=== PATIENT | female | born 1945 | race Caucasian/White ===

== ENCOUNTER 2024-06-03 06:42 | Emergency (ER) | payer MEDICARE ==
[2024-06-03 07:12] LABS: #Basophils 0.01 10x3/uL (0.0-0.2); #Eosinphils 0.09 10x3/uL (0.0-0.5); #Monocytes 1.02 10x3/uL (0.0-1.1); #Neutrophils 7.29 10x3/uL (1.5-8.4); %Basophils 0.1 % (0.0-2.0); %Eosinophils 0.8 % (0.0-6.0); %Lymphocytes 23.2 % (18.0-47.0); %Monocytes 9.2 % (0.0-10.0); %Neutrophils 66.2 % (40.0-75.0)
[2024-06-03 07:13] LABS: Hemoglobin 6.9 g/dL (12.0-15.5); Mean Corpuscular Hemoglobin 24.6 pg (27.0-33.0); Mean Corpuscular Volume 82.1 fL (81.6-98.3); Mean Platelet Volume 8.1 fL (7.4-10.4); Platelet Count 276 10x3/uL (150-450); RBC Distribution Width 17.2 % (11.5-14.5)
[2024-06-03 07:25] LABS: INR-International Normal Ratio 1.2; PTT 30.5 sec (22.0-33.0); Prothrombin Time 12.5 sec (9.5-12.1)
[2024-06-03 07:32] LABS: ALT (SGPT) 13 U/L (8-55); AST (SGOT) 12 U/L (5-34); Albumin 1.6 g/dL (3.4-4.8); Alkaline Phosphatase 79 U/L (40-110); Anion Gap 10 mmol/L (10-20); BUN (Urea Nitrogen) 18 mg/dL (9.8-20.1); Bilirubin, Total 0.3 mg/dL (0.2-1.2); Calc. Creatinine Clearance 0 mL/min (70-130); Calcium 7.4 mg/dL (7.8-10.44); Carbon Dioxide 20 mmol/L (23-31); Chloride 110 mmol/L (98-107); Estimated GFR 91; Globulin 2.8 g/dL (2.4-3.5); Glucose 80 mg/dL (83-110); Lipase 9 U/L (8-78); Potassium 3.3 mmol/L (3.5-5.1); Protein, Total 4.4 g/dL (5.8-8.1); Sodium 137 mmol/L (136-145)
[2024-06-03 07:43] LABS: Troponin I 0.058 ng/mL (< 0.028)
[2024-06-03 08:19] LABS: Band 3 % (5-11); Eosinophils 2 % (0-10); Lymphocytes 22 % (21-51); Monocytes 3 % (0-10)
[2024-06-03 08:21] LABS: Anisocytosis SLIGHT = 6-15 cells (100X) (0-5/hpf); Hypochromia SLIGHT = 6-15 cells (100X) (0-5/hpf); Microcytosis SLIGHT = 6-15 cells (100X) (0-5/hpf); Platelet Adequacy Comment Appears Adequate
[2024-06-03] MEDS ORDERED: Piperacillin/Tazobactam 3.375 GM VIAL ONE (09:39)
[2024-06-03 09:47] LABS: Bilirubin Neg (Negative); Blood, Urine 25 (Negative); Clarity Cloudy (Clear); Glucose, Urine (Dipstick) Normal (Negative); Ketone, Urine Negative (Negative); Leukocyte 100 (Negative); Nitrite Negative (Negative); Protein, Urine (Dipstick) 100 mg/dl (Neg-Trace)
[2024-06-03] MEDS ORDERED: Lorazepam 2 MG/ML VIAL ONE (09:57)
[2024-06-03 10:21] LABS: Bacteria/HPF 4+ HPF (None Seen); CAUTI Indications for Culture Pelvic or flank pain; WBC/HPF 21-50 HPF (0-3)
[2024-06-03 10:22] LABS: Urine Culture Reflex Yes Yes
[2024-06-03] MEDS ORDERED: Iopamidol 370 76% 100 ML VIAL ONE (12:58)
== END 2024-06-03 19:01 | disposition short-term general hospital (02) ==
LOC: CSHERS 06:42
DX: K68.19 Other retroperitoneal abscess (principal); D64.9 Anemia, unspecified; K56.41 Fecal impaction; E78.5 Hyperlipidemia, unspecified; I10 Essential (primary) hypertension; Z79.01 Long term (current) use of anticoagulants; Z79.899 Other long term (current) drug therapy
CPT/HCPCS: 36430; 74174; 81001; 83605; 83690; 83880; 84484; 85610; 85730; 86850; 86900; 86901; 86920; 87040; 87077; 87086; 87149 ×2; 87186; J2060; J2543; P9016; Q9967; 36415; 80053; 82274; 84443; 85025